=== PATIENT | female | born 1935 | race Caucasian/White ===

== ENCOUNTER 2019-04-14 09:52 | Outpatient (CLI) | payer MEDICARE, OTHER ==
--- NOTE | 2019-04-14 11:04 | RAD ---
3 VIEWS LUMBAR SPINE: Date: 04/14/19 COMPARISON: 02/15/17. HISTORY: Low back pain. FINDINGS: There is an anterior wedge compression fracture/superior end plate fracture of the L3 vertebral body with approximately 40% loss of vertebral body height anteriorly, not significantly changed when sparkle red to the 02/15/17 exam. On the flexion lateral view, there is anterolisthesis of L4 on L5 measuring 8.0 mm, stable. The anterolisthesis at L4-5 measures 8.0 mm on neutral imaging and 9.0 mm on extensi on imaging. There is multilevel lower lumbar spine facet hypertrophy. IMPRESSION: Stable L3 fracture. Stable anterolisthesis of L4 on L5. POS: [facility]
--- NOTE | 2019-04-14 11:42 | MRI ---
MRI LUMBAR SPINE WITH AND WITHOUT CONTRAST: Date: 04/14/19 INDICATION: Low back pain. 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 Comparison made to MRI lumbar spine dated 02/15/17. FINDINGS: Anterior wedge compression deformity involving the L3 vertebra is again seen and appears stable. Ther e is a superior end plate deformity consistent with Schmorl's node at this vertebra which is unchange d in appearance. Slight posterolisthesis at L3-4 is stable. A Grade I anterolisthesis at L4-5 is unchanged. At L1-2, mild disc bulge without central canal or foraminal stenosis. At L2-3, there is broad based disc bulge. Moderate facet hypertrophy. Mild central canal stenosis, wh ich appears stable. At L3-4, there is slight posterolisthesis. There is a broad based disc bulge. Prominent facet and lig amentous hypertrophy. Moderate central canal stenosis which appears stable. Bilateral foraminal steno sis secondary to diffuse disc bulge and facet hypertrophy. An asymmetric disc projects to the right. At L4-5, anterolisthesis with diffuse disc bulge flattening the thecal sac. Prominent facet hypertrop hy. Mild to moderate central canal stenosis. Bilateral foraminal stenosis due to the listhesis and br oad based bulge with facet hypertrophy. At L5-S1, there is no significant disc bulge. Mild to moderate facet hypertrophy. No significant cent ral canal or foraminal stenosis. Review of surrounding soft tissues show parapelvic cystic lesions and prominent collecting structures at both kidneys. These findings are stable from the MRI of 2017. IMPRESSION: Anterior wedge deformity at L3 with superior end plate deformity at L3 appears stable. Slight postero listhesis at L3-4 and anterolisthesis at L4-5 appear unchanged. Findings at each level as noted above . POS: [facility]
== END 2019-04-14 09:53 | disposition home or self-care (01) ==
LOC: TBSIIMAG 09:52
PROVIDERS: ATTEND Neurological Surgery
DX: Q76.2 Congenital spondylolisthesis (principal); M54.5 Low back pain; Z87.81 Personal history of (healed) traumatic fracture
CPT/HCPCS: 72100; 72158; 82565

== ENCOUNTER 2019-12-31 10:29 | Day surgery (SDC) | payer MEDICARE, OTHER ==
[2019-12-29 14:19] VITALS: BMI 17.3
[2019-12-31] MEDS ORDERED: Fentanyl 100 MCG/2 ML VIAL ONE (13:17)
[2019-12-31] MEDS ORDERED: Bupivacaine PF 0.5% 30 ML VIAL ONE (13:18)
--- NOTE | 2020-01-01 14:36 | OP ---
DATE OF PROCEDURE: 12/31/2019 PREOPERATIVE DIAGNOSIS: Right neuroma, third interspace. POSTOPERATIVE DIAGNOSIS: Right neuroma, third interspace. PROCEDURE PERFORMED: Right foot third interspace excision of neuroma. ESTIMATED BLOOD LOSS: Less than 30 mL. ANESTHESIA: Light sedation with ankle block, totaling 10 mL of 0.5% plain Marcaine. HEMOSTASIS: Well-padded pneumatic ankle tourniquet utilized. PATHOLOGY: Neuroma measuring 2 cm x 4 cm, sent to Pathology for microscopic examination. DESCRIPTION OF PROCEDURE: The patient was taken to the operating room and placed on the operating room table in the supine position. After she was made comfortable, an ankle block was performed on the right. Next, the right lower extremity was scrubbed and draped in usual surgical manner. Attention was directed to the dorsal right third interspace. A linear incision was made over the third interspace. Using sharp and blunt dissection and electrocauterization as necessary, the surgical site was deepened to identify the intermetatarsal ligament. At this time, plantar pressure was applied to the foot and a large neuroma was seen bulging distally to the intermetatarsal ligament. Transection of the intermetatarsal ligament was performed with tenotomy scissors. Next, the nerve was dissected free distally and proximally, proximal to the metatarsal heads. The digital nerves were transected, then the nerve was dissected proximal to the metatarsal heads and then resected. Copious lavage with normal saline was performed. The incision was reapproximated with 3-0 nylon suture. A placement of a Ti drain was done to prevent deep space abscess. Dressings were applied consisting of Xeroform, 4x4 gauze, Laurie, and an Paul bandage. The patient was fitted with a postoperative shoe. Upon deflation of the pneumatic cuff, instant capillary filling to all the digits was noted. The patient tolerated the anesthesia and procedure well. She left the operating room to the recovery room with vital signs stable. During the procedure, an additional field block was performed using 0.5% plain Marcaine less than 10 mL. The patient will be called to check on her status this evening. She has a followup appointment with [facility] on for re-examination and bandage change. Job ID: [id number]
== END 2019-12-31 15:25 | disposition home or self-care (01) ==
LOC: SDC 10:29
PROVIDERS: ATTEND Podiatrist
PROC: 01BG0ZZ Excision of Tibial Nerve, Open Approach (ICD-10-PCS; principal; 2019-12-31)
DX: G57.81 Other specified mononeuropathies of right lower limb (principal); M19.071 Primary osteoarthritis, right ankle and foot; J45.909 Unspecified asthma, uncomplicated; E06.3 Autoimmune thyroiditis; E03.9 Hypothyroidism, unspecified; M81.0 Age-related osteoporosis without current pathological fracture; Z79.899 Other long term (current) drug therapy; Z88.1 Allergy status to other antibiotic agents; Z91.041 Radiographic dye allergy status
CPT/HCPCS: 88304; J0690; J3010; S0020

== ENCOUNTER 2020-04-17 16:55 | Emergency (ER) | payer MEDICARE, OTHER ==
[2020-04-17] MEDS ORDERED: Ondansetron ODT 4 MG TAB ONE (17:20)
[2020-04-17 17:42] LABS: Bilirubin Negative (Negative); Blood, Urine Trace (Negative); Clarity Turbid (Clear); Glucose, Urine (Dipstick) Normal (Negative); Ketone, Urine Negative (Negative); Leukocyte Negative Leu/uL (Negative); Nitrite Negative (Negative); Protein, Urine (Dipstick) 20 mg/dL (Neg-Trace); RBC/HPF 0-3 HPF (0-3); Specific Gravity, Urine 1.019 (1.002-1.036); Squamous Epithelial 0-3 HPF (0-3); Urobilinogen Normal mg/dL (Less than 2)
[2020-04-17 17:46] LABS: Bacteria/HPF 1+ HPF (None Seen)
[2020-04-17 17:54] LABS: #Lymphocytes 0.9 thou/uL (1.20-3.40); #Monocytes 0.4 thou/uL (0.11-0.59); #Neutrophils 5.9 thou/uL (1.40-6.50); %Basophils 0.4 % (0.0-1.0); %Eosinophils 0.3 % (0.0-10.0); %Lymphocytes 12.1 % (21.0-51.0); %Monocytes 5.9 % (0.0-10.0); %Neutrophils 81.3 % (42.0-75.0); Hemoglobin 14.2 g/dL (12.0-16.0); Mean Corpuscular HGB CONC 34.7 g/dL (32.0-36.0); Mean Corpuscular Hemoglobin 33.4 pg (27.0-31.0); Mean Corpuscular Volume 96.3 fL (78.0-98.0); Mean Platelet Volume 11.4 fL (7.4-10.4); Platelet Count 82 thou/uL (130-400); RBC Distribution Width 11.5 % (11.5-14.5); Red Blood Cell (RBC) Count 4.26 mill/uL (4.20-5.40); White Blood Cell (WBC) Count 7.3 thou/uL (4.8-10.8)
[2020-04-17 18:15] LABS: ALT (SGPT) 12 U/L (8-55); AST (SGOT) 19 U/L (5-34); Albumin 3.8 g/dL (3.4-4.8); Alkaline Phosphatase 61 U/L (40-110); Anion Gap 14 mmol/L (10-20); BUN (Urea Nitrogen) 15 mg/dL (9.8-20.1); Bilirubin, Total 0.5 mg/dL (0.2-1.2); Calc. Creatinine Clearance 0 mL/min (70-130); Calcium 9.2 mg/dL (7.8-10.44); Carbon Dioxide 26 mmol/L (23-31); Chloride 103 mmol/L (98-107); Estimated GFR-MDRD 49; Globulin 2.5 g/dL (2.4-3.5); Glucose 136 mg/dL (83-110); Lipase 24 U/L (8-78); Potassium 3.4 mmol/L (3.5-5.1); Protein, Total 6.3 g/dL (6.0-8.3); Sodium 140 mmol/L (136-145)
[2020-04-17] MEDS ORDERED: Ketorolac Tromethamine 30 MG/ML VIAL ONE (18:58)
[2020-04-17] MEDS ORDERED: Ondansetron PF 4 MG/2 ML Vial ONE (18:58)
--- NOTE | 2020-04-17 19:04 | CT ---
CT ABDOMEN AND PELVIS WITHOUT IV CONTRAST: Indications: Left flank pain Comparison: CT of chest, abdomen, and pelvis without contrast, November 2005 FINDINGS: Lung bases are clear. The liver, spleen, and pancreas unremarkable. Stomach unremarkable. Adrenal glands normal. Review of kidneys reveal numerous hyperdense lesions in the right kidney with a calcification in the lower pole of the right kidney. These hyperdense lesions were present in 2005 and the calcification w as also present in 2005. The right kidney appears stable from that study. Review of left kidney shows evidence of mild left hydronephrosis. I cannot exclude multiple small par apelvic cysts although these all may represent dilated upper collecting structures. The left ureter i s mildly dilated. The bladder is contracted. There is a tiny calcific density measuring in the 3 mm r meaghan in the region of the distal left ureter. Tiny left ureteral calculus is suspected but difficult to confirm. The small bowel loops are normal caliber. Colon is unremarkable. Aorta normal caliber. Images through the pelvis show unremarkable uterus and adnexa. Osseous structures show a compression deformity involving the L3 vertebra. There is an anterolisthesi s at L4-5. Bones are osteopenic. IMPRESSION: 1. Evidence of mild to moderate left hydronephrosis and left hydroureter. A tiny calculus is seen in the region of the distal left ureter, probably representing an obstructing calculus. Follow up is rec ommended with IVP or CT urogram if this calculus does not pass spontaneously. 2. Numerous hyperdense lesions in the right kidney, right renal calcification are noted. These lesion s appear stable when compared to the prior examination of 2005. POS: [facility]
== END 2020-04-17 21:10 | disposition home or self-care (01) ==
LOC: ERS 16:55
DX: N13.2 Hydronephrosis with renal and ureteral calculous obstruction (principal); I34.1 Nonrheumatic mitral (valve) prolapse; E06.3 Autoimmune thyroiditis; Z79.899 Other long term (current) drug therapy
CPT/HCPCS: 36415; 74176; 80053; 81003; 81015; 83690; 85025; 87086; 96361; 96374; 96375; J1885; J2405; Q0162

== ENCOUNTER 2020-04-29 13:23 | Outpatient (CLI) | payer MEDICARE, OTHER ==
--- NOTE | 2020-04-29 13:51 | BD ---
EXAM: Bone densitometry using DEXA HISTORY: 54 yo female. Screening for postmenopausal osteoporosis FINDINGS: L1--bone mineral density 0.633 g/sq cm; T score -3.2 ; Z score -0.8 L2--bone mineral density 0.698 g/sq cm; T score -2.0 ; Z score -0.3 L3--bone mineral density 0.825 g/sq cm; T score -2.4 ; Z score 0.5 L4--bone mineral density 0.861 g/sq cm; T score -1.8 ; Z score 1.1 Total L1-L4--bone mineral density 0.756 g/sq cm; T score -2.6 ; Z score 0.1 Left femoral neck--bone mineral density0.486; T score -2.3 ; Z score -0.9 Total proximal left femur--bone mineral density 0.622; T score -2.6 ; Z score -0.4 IMPRESSION: Osteoporosis
== END 2020-04-29 13:24 | disposition home or self-care (01) ==
LOC: BICMAMMO 13:23
PROVIDERS: ATTEND Internal Medicine Rheumatology
DX: M81.0 Age-related osteoporosis without current pathological fracture (principal)
CPT/HCPCS: 77080

== ENCOUNTER 2020-12-21 10:52 | Outpatient (CLI) | payer MEDICARE, OTHER | END 2020-12-21 10:53 | disposition home or self-care (01) | LOC: TBSIIMAG 10:52 | PROVIDERS: ATTEND Family Medicine | DX: M50.90 Cervical disc disorder, unspecified, unspecified cervical region (principal); M47.812 Spondylosis without myelopathy or radiculopathy, cervical region; M48.02 Spinal stenosis, cervical region | CPT/HCPCS: 72141 ==

== ENCOUNTER 2021-01-05 10:34 | Outpatient (CLI) | payer MEDICARE, OTHER | END 2021-01-05 10:35 | disposition home or self-care (01) | LOC: ULT 10:34 | PROVIDERS: ATTEND Urology | DX: N28.1 Cyst of kidney, acquired (principal); N20.0 Calculus of kidney | CPT/HCPCS: 76770 ==

== ENCOUNTER 2021-05-10 10:27 | Outpatient (CLI) | payer MEDICARE, OTHER | END 2021-05-10 10:28 | disposition home or self-care (01) | LOC: BICMAMMO 10:27 | PROVIDERS: ATTEND Internal Medicine Rheumatology | DX: M81.0 Age-related osteoporosis without current pathological fracture (principal) | CPT/HCPCS: 77080 ==

== ENCOUNTER 2021-06-23 08:19 | Emergency (ER) | payer MEDICARE, OTHER ==
[2021-06-23] MEDS ORDERED: Ondansetron PF 4 MG/2 ML Vial ONE (09:03)
[2021-06-23] MEDS ORDERED: Aspirin Chewable 81 MG TAB ONE ×2 (09:03→09:11)
[2021-06-23 09:24] LABS: #Eosinphils 0.1 thou/uL (0.0-0.7); #Lymphocytes 1.2 thou/uL (1.20-3.40); #Monocytes 0.5 thou/uL (0.11-0.59); #Neutrophils 2.5 thou/uL (1.40-6.50); %Basophils 0.2 % (0.0-1.0); %Eosinophils 2.8 % (0.0-10.0); %Lymphocytes 27.2 % (21.0-51.0); %Monocytes 11.2 % (0.0-10.0); %Neutrophils 58.5 % (42.0-75.0); Hemoglobin 15.4 g/dL (12.0-16.0); Mean Corpuscular HGB CONC 32.7 g/dL (32.0-36.0); Mean Corpuscular Hemoglobin 31.9 pg (27.0-31.0); Mean Corpuscular Volume 97.6 fL (78.0-98.0); Mean Platelet Volume 10.6 fL (7.4-10.4); Platelet Count 72 thou/uL (130-400); RBC Distribution Width 12.1 % (11.5-14.5); Red Blood Cell (RBC) Count 4.83 mill/uL (4.20-5.40); White Blood Cell (WBC) Count 4.2 thou/uL (4.8-10.8)
[2021-06-23 09:29] LABS: Bilirubin Negative (Negative); Blood, Urine Negative (Negative); Clarity Clear (Clear); Glucose, Urine (Dipstick) Normal (Negative); Ketone, Urine Negative (Negative); Leukocyte Negative Leu/uL (Negative); Nitrite Negative (Negative); Protein, Urine (Dipstick) Negative (Neg-Trace); Specific Gravity, Urine 1.004 (1.002-1.036); Urobilinogen Normal mg/dL (Less than 2); pH, Urine 7.5 (5.0-9.0)
[2021-06-23 10:20] LABS: SARS-CoV-2 NAA Rapid Test Not Detected (NotDetected)
[2021-06-23 12:05] LABS: ALT (SGPT) 11 U/L (8-55); AST (SGOT) 19 U/L (5-34); Albumin 3.6 g/dL (3.4-4.8); Alkaline Phosphatase 67 U/L (40-110); Anion Gap 15 mmol/L (10-20); BUN (Urea Nitrogen) 12 mg/dL (9.8-20.1); Bilirubin, Total 0.8 mg/dL (0.2-1.2); Calc. Creatinine Clearance 0 mL/min (70-130); Calcium 9.6 mg/dL (7.8-10.44); Carbon Dioxide 22 mmol/L (23-31); Chloride 105 mmol/L (98-107); Globulin 3.1 g/dL (2.4-3.5); Glucose 92 mg/dL (83-110); Potassium 3.9 mmol/L (3.5-5.1); Protein, Total 6.7 g/dL (5.8-8.1); Sodium 138 mmol/L (136-145)
== END 2021-06-23 13:30 | disposition home or self-care (01) ==
LOC: ERS 08:19
DX: R00.2 Palpitations (principal); Z20.822 Contact with and (suspected) exposure to COVID-19; I34.1 Nonrheumatic mitral (valve) prolapse; Z79.899 Other long term (current) drug therapy
CPT/HCPCS: 0240U; 71045; 81003; 83735; 84439; 84484; 93005; 96374; 99285; 80053; 84443; 85025; J2405

== ENCOUNTER 2021-07-18 09:53 | Outpatient (CLI) | payer MEDICARE, OTHER | END 2021-07-18 09:54 | disposition home or self-care (01) | LOC: BICMAMMO 09:53 | PROVIDERS: ATTEND Family Medicine | DX: N63.20 Unspecified lump in the left breast, unspecified quadrant (principal) | CPT/HCPCS: 76642; 77066; G0279 ==

== ENCOUNTER 2021-10-02 12:49 | Outpatient (CLI) | payer MEDICARE, OTHER | END 2021-10-02 12:50 | disposition home or self-care (01) | LOC: RAD 12:49 | PROVIDERS: ATTEND Specialist | DX: M51.16 Intervertebral disc disorders with radiculopathy, lumbar region (principal); M47.26 Other spondylosis with radiculopathy, lumbar region | CPT/HCPCS: 72110 ==

== ENCOUNTER 2022-01-30 14:01 | Outpatient (CLI) | payer MEDICARE, OTHER | END 2022-01-30 14:02 | disposition home or self-care (01) | LOC: BICRAD 14:01 | PROVIDERS: ATTEND Urology | DX: N20.0 Calculus of kidney (principal); N28.89 Other specified disorders of kidney and ureter | CPT/HCPCS: 74018 ==

== ENCOUNTER 2022-04-30 19:02 | Observation (INO) | payer MEDICARE, OTHER ==
[2022-04-30 20:08] VITALS: BMI 19.8
[2022-04-30] MEDS ORDERED: LACTINEX 1 TAB PO PRN (20:26)
[2022-04-30] MEDS ORDERED: Lidocaine 5% Patch TD PRN (20:26)
[2022-04-30] MEDS ORDERED: Ascorbic Acid 500 mg Chewable Tablet PO PRN (20:26)
[2022-04-30] MEDS ORDERED: Loratadine 10 MG TAB PO PRN (20:26)
[2022-04-30] MEDS ORDERED: guaiFENesin ER 600 MG TAB PO PRN (20:26)
[2022-04-30] MEDS ORDERED: Bisacodyl 5 MG TAB PO PRN (20:54)
[2022-04-30] MEDS ORDERED: Senokot S 8.6-50 MG TAB PO PRN (20:54)
[2022-04-30] MEDS ORDERED: Famotidine 20 MG TAB PO SCH (21:00)
[2022-04-30] MEDS ORDERED: [UNRECOGNIZED DRUG - OTHER] PO SCH (21:00)
[2022-04-30] MEDS ORDERED: CHOLECALCIFEROL PO SCH (21:00)
[2022-04-30] MEDS ORDERED: Fish Oil 1,000 MG CAP PO SCH (21:00)
[2022-04-30] MEDS ORDERED: [UNRECOGNIZED DRUG - OTHER] PO SCH (21:00)
[2022-04-30] MEDS: Flecainide 50 MG TAB PO SCH (21:15)
[2022-04-30] MEDS: Acetaminophen 325 MG TAB PO PRN (21:18)
[2022-04-30] MEDS: cycloSPORINE 0.05% Ophthalmic Droperette EA EYE SCH (21:20)
[2022-04-30] MEDS: Transdermal Patch Removal TOP SCH (21:26)
[2022-05-01 05:32] LABS: Anion Gap 10 mmol/L (10-20); BUN (Urea Nitrogen) 17 mg/dL (9.8-20.1); Calc. Creatinine Clearance 42 mL/min (70-130); Calcium 8.8 mg/dL (7.8-10.44); Carbon Dioxide 26 mmol/L (23-31); Chloride 107 mmol/L (98-107); Estimated GFR 78; Glucose 84 mg/dL (83-110); Potassium 3.7 mmol/L (3.5-5.1); Sodium 139 mmol/L (136-145)
[2022-05-01] MEDS ORDERED: Levothyroxine Sodium 100 MCG TAB PO SCH (06:00)
[2022-05-01 06:05] LABS: #Lymphocytes 1.2 thou/uL (1.20-3.40); #Monocytes 0.4 thou/uL (0.11-0.59); #Neutrophils 2.5 thou/uL (1.40-6.50); %Basophils 0.4 % (0.0-1.0); %Eosinophils 1.1 % (0.0-10.0); %Lymphocytes 27.9 % (21.0-51.0); %Monocytes 10.3 % (0.0-10.0); %Neutrophils 60.4 % (42.0-75.0); Hemoglobin 13.8 g/dL (12.0-16.0); Mean Corpuscular HGB CONC 33.7 g/dL (32.0-36.0); Mean Corpuscular Hemoglobin 33.6 pg (27.0-31.0); Mean Corpuscular Volume 99.6 fL (78.0-98.0); Mean Platelet Volume 11.6 fL (7.4-10.4); Platelet Count 60 thou/uL (130-400); Platelet Morphology Comment Appears Decreased; RBC Distribution Width 11.4 % (11.5-14.5); RBC Morphology Normal; White Blood Cell (WBC) Count 4.1 thou/uL (4.8-10.8)
[2022-05-01] MEDS ORDERED: Liothyronine Sodium 5 MCG TAB PO SCH (07:30)
[2022-05-01] MEDS ORDERED: Non-Formulary Item 1 EACH (Biotin [Biotin] 5,000 MCG Tab.Rapdis) PO SCH (09:00)
[2022-05-01] MEDS ORDERED: Fish Oil 1,000 MG CAP PO SCH (09:00)
[2022-05-01] MEDS ORDERED: ZINC GLUCONATE ZINC PICOLINATE 30 MG PO SCH (09:00)
[2022-05-01] MEDS ORDERED: Folic Acid 1 MG TAB PO SCH (09:00)
[2022-05-01] MEDS ORDERED: Enoxaparin Sodium 30 MG/0.3 ML SYRINGE SC SCH (09:00)
[2022-05-01] MEDS: Flecainide 50 MG TAB PO SCH (09:22)
[2022-05-01] MEDS: cycloSPORINE 0.05% Ophthalmic Droperette EA EYE SCH (09:23)
[2022-05-01] MEDS: Transdermal Patch Removal TOP SCH (09:23)
[2022-05-01 12:55] VITALS: TEMP 97.7
[2022-05-01] MEDS: Acetaminophen 325 MG TAB PO PRN (13:26)
[2022-05-01 17:32] VITALS: BP 150/67
== END 2022-05-01 18:40 | disposition home or self-care (01) ==
LOC: 2SW 19:42
PROVIDERS: ADMIT Hospitalist; ATTEND Hospitalist
DX: R55 Syncope and collapse (principal); E03.9 Hypothyroidism, unspecified; I49.9 Cardiac arrhythmia, unspecified; G47.33 Obstructive sleep apnea (adult) (pediatric); D69.6 Thrombocytopenia, unspecified; E06.3 Autoimmune thyroiditis; M81.0 Age-related osteoporosis without current pathological fracture; Z66 Do not resuscitate; Z79.890 Hormone replacement therapy; Z79.899 Other long term (current) drug therapy; Z88.1 Allergy status to other antibiotic agents; Z91.041 Radiographic dye allergy status; Z20.822 Contact with and (suspected) exposure to COVID-19; R94.31 Abnormal electrocardiogram [ECG] [EKG]; R01.1 Cardiac murmur, unspecified
CPT/HCPCS: 70450; 71045; 72125; 80048; 80053; 84484; 85025 ×2; 87086; 93005; 93306; 94760; 97116; G0378 ×2; U0003; U0005; 36415; 81003; 81015

== ENCOUNTER 2022-07-05 10:03 | Outpatient (CLI) | payer MEDICARE, OTHER | END 2022-07-05 10:04 | disposition home or self-care (01) | LOC: SCSRAD 10:03 | PROVIDERS: ATTEND Family Medicine | DX: M54.50 Low back pain, unspecified (principal); M51.86 Other intervertebral disc disorders, lumbar region | CPT/HCPCS: 72100 ==

== ENCOUNTER 2022-07-16 08:20 | Outpatient (CLI) | payer MEDICARE, OTHER | END 2022-07-16 08:21 | disposition home or self-care (01) | LOC: SCSMRI 08:20 | PROVIDERS: ATTEND Nurse Practitioner Family | DX: M48.56XA Collapsed vertebra, not elsewhere classified, lumbar region, initial encounter for fracture (principal); M43.16 Spondylolisthesis, lumbar region; M51.36 Other intervertebral disc degeneration, lumbar region; M43.8X6 Other specified deforming dorsopathies, lumbar region | CPT/HCPCS: 72148 ==

== ENCOUNTER 2023-01-17 12:05 | Outpatient (CLI) | payer MEDICARE, OTHER | END 2023-01-17 12:06 | disposition home or self-care (01) | LOC: BICULT 12:05 | PROVIDERS: ATTEND Urology | DX: N13.2 Hydronephrosis with renal and ureteral calculous obstruction (principal) | CPT/HCPCS: 36415; 74018; 76770; 80048 ==

== ENCOUNTER 2023-04-10 13:26 | Outpatient (CLI) | payer MEDICARE, OTHER | END 2023-04-10 13:27 | disposition home or self-care (01) | LOC: SCSMRI 13:26 | PROVIDERS: ATTEND Specialist | DX: M51.16 Intervertebral disc disorders with radiculopathy, lumbar region (principal); M47.26 Other spondylosis with radiculopathy, lumbar region; M43.16 Spondylolisthesis, lumbar region; M48.061 Spinal stenosis, lumbar region without neurogenic claudication; M43.8X6 Other specified deforming dorsopathies, lumbar region; M47.22 Other spondylosis with radiculopathy, cervical region; M50.11 Cervical disc disorder with radiculopathy, high cervical region; M50.122 Cervical disc disorder at C5-C6 level with radiculopathy; M50.123 Cervical disc disorder at C6-C7 level with radiculopathy; G95.89 Other specified diseases of spinal cord | CPT/HCPCS: 72141; 72148 ==

== ENCOUNTER 2023-05-07 18:02 | Observation (INO) | payer MEDICARE, OTHER ==
[~2023-05-07 18:02] MED LIST: Iopamidol-370 76% 500 ML MDV (1 ML CHARGE) ONE
[2023-05-07 19:32] LABS: #Monocytes 0.5 thou/uL (0.11-0.59); #Neutrophils 3.4 thou/uL (1.40-6.50); %Basophils 0.4 % (0.0-1.0); %Eosinophils 0.7 % (0.0-10.0); %Lymphocytes 29.9 % (21.0-51.0); %Monocytes 8.8 % (0.0-10.0); Hematocrit 45.8 % (36.0-47.0); Hemoglobin 15.6 g/dL (12.0-16.0); Mean Corpuscular HGB CONC 34.1 g/dL (32.0-36.0); Mean Corpuscular Volume 99.8 fl (78.0-98.0); RBC Distribution Width 13.3 % (11.5-14.5); Red Blood Cell (RBC) Count 4.59 mill/uL (4.20-5.40); White Blood Cell (WBC) Count 5.7 10x3/uL (4.8-10.8)
[2023-05-07 19:34] LABS: Platelet Count 87 10x3/uL (130-400)
[2023-05-07 19:41] LABS: PTT 35.2 sec (22.9-36.1); Prothrombin Time 12.7 sec (12.0-14.7)
[2023-05-07 19:43] LABS: INR-International Normal Ratio 0.9
[2023-05-07 19:47] LABS: Bacteria/HPF None Seen HPF (None Seen); Bilirubin Negative (Negative); Blood, Urine Negative (Negative); Clarity Turbid (Clear); Glucose, Urine (Dipstick) Normal (Negative); Ketone, Urine Negative (Negative); Leukocyte Negative Leu/uL (Negative); Nitrite Negative (Negative); Protein, Urine (Dipstick) Negative (Neg-Trace); RBC/HPF 0-3 HPF (0-3); Squamous Epithelial None Seen HPF (0-3); Urobilinogen Normal mg/dL (Less than 2); WBC/HPF 0-3 HPF (0-3); pH, Urine 7.5 (5.0-9.0)
[2023-05-07 19:50] LABS: Urine Culture Reflex No No
[2023-05-07 19:53] LABS: ALT (SGPT) 13 U/L (8-55); AST (SGOT) 19 U/L (5-34); Albumin 4.3 g/dL (3.4-4.8); Alkaline Phosphatase 76 U/L (40-110); Anion Gap 16 mmol/L (10-20); BUN (Urea Nitrogen) 21 mg/dL (9.8-20.1); Bilirubin, Total 0.5 mg/dL (0.2-1.2); Calc. Creatinine Clearance 0 mL/min (70-130); Calcium 10.5 mg/dL (7.8-10.44); Carbon Dioxide 27 mmol/L (23-31); Chloride 102 mmol/L (98-107); Estimated GFR 61; Globulin 2.9 g/dL (2.4-3.5); Glucose 98 mg/dL (83-110); Protein, Total 7.2 g/dL (5.8-8.1); Sodium 141 mmol/L (136-145)
[2023-05-07 19:57] LABS: Troponin I Less than 0.010 ng/mL (< 0.028)
[2023-05-07] MEDS ORDERED: Ondansetron PF 4 MG/2 ML Vial IVP PRN (21:15)
[2023-05-07] MEDS ORDERED: Ondansetron ODT 4 MG TAB SL PRN (21:15)
[2023-05-07] MEDS ORDERED: Sodium Chloride 0.9% 1,000 ML IV SCH (21:15)
[2023-05-07] MEDS ORDERED: Acetaminophen 325 MG TAB PO PRN (21:15)
[2023-05-07 23:07] LABS: Troponin I Less than 0.010 ng/mL (< 0.028)
[2023-05-07] MEDS ORDERED: Calcium Carbonate 500 MG ChewTAB PO PRN (23:10)
[2023-05-07] MEDS ORDERED: Senokot S 8.6-50 MG TAB PO PRN (23:10)
[2023-05-07 23:21] VITALS: BMI 18.1
[2023-05-08 01:44] LABS: Troponin I Less than 0.010 ng/mL (< 0.028)
[2023-05-08] MEDS ORDERED: Ondansetron PF 4 MG/2 ML Vial IVP PRN (04:33)
[2023-05-08 04:46] LABS: #Eosinphils 0.1 thou/uL (0.0-0.7); #Monocytes 0.5 thou/uL (0.11-0.59); #Neutrophils 2.6 thou/uL (1.40-6.50); %Basophils 0.4 % (0.0-1.0); %Eosinophils 1.3 % (0.0-10.0); %Lymphocytes 32.1 % (21.0-51.0); %Monocytes 10.8 % (0.0-10.0); %Neutrophils 55.2 % (42.0-75.0); Hematocrit 42.7 % (36.0-47.0); Hemoglobin 14.8 g/dL (12.0-16.0); Mean Corpuscular HGB CONC 34.7 g/dL (32.0-36.0); Mean Corpuscular Hemoglobin 33.3 pg (27.0-31.0); Mean Platelet Volume 12.9 fL (7.4-10.4); RBC Distribution Width 13.1 % (11.5-14.5); Red Blood Cell (RBC) Count 4.45 mill/uL (4.20-5.40); White Blood Cell (WBC) Count 4.7 10x3/uL (4.8-10.8)
[2023-05-08 04:47] LABS: Platelet Count 74 10x3/uL (130-400)
[2023-05-08 05:26] LABS: Anion Gap 14 mmol/L (10-20); BUN (Urea Nitrogen) 15 mg/dL (9.8-20.1); Calc. Creatinine Clearance 41 mL/min (70-130); Calcium 9.4 mg/dL (7.8-10.44); Carbon Dioxide 26 mmol/L (23-31); Chloride 105 mmol/L (98-107); Estimated GFR 77; Glucose 88 mg/dL (83-110); Potassium 3.8 mmol/L (3.5-5.1); Sodium 141 mmol/L (136-145)
[2023-05-08] MEDS ORDERED: Levothyroxine Sodium 75 MCG TAB PO SCH ×2 (06:00)
[2023-05-08] MEDS ORDERED: Famotidine 20 MG TAB PO SCH (09:00)
[2023-05-08] MEDS ORDERED: Levothyroxine Sodium 125 MCG TAB PO SCH (09:00)
[2023-05-08] MEDS ORDERED: Flecainide 50 MG TAB PO SCH ×2 (09:00)
[2023-05-08] MEDS ORDERED: Metoclopramide 10 MG/10 ML UDCUP PO PRN (11:42)
[2023-05-08 12:20] VITALS: TEMP 96.8
[2023-05-08 12:58] VITALS: BP 132/63
== END 2023-05-08 15:10 | disposition home or self-care (01) ==
LOC: ERS 18:02 → 2SE 21:09
PROVIDERS: ADMIT Student in an Organized Health Care Education/Training Program; ATTEND Family Medicine
DX: E87.8 Other disorders of electrolyte and fluid balance, not elsewhere classified (principal); R42 Dizziness and giddiness; M48.02 Spinal stenosis, cervical region; D69.6 Thrombocytopenia, unspecified; I49.9 Cardiac arrhythmia, unspecified; E03.9 Hypothyroidism, unspecified; R94.31 Abnormal electrocardiogram [ECG] [EKG]; Z88.1 Allergy status to other antibiotic agents; Z79.890 Hormone replacement therapy; Z79.899 Other long term (current) drug therapy; Z90.89 Acquired absence of other organs; Z90.49 Acquired absence of other specified parts of digestive tract
CPT/HCPCS: 70450; 70496; 70498; 70551; 71045; 80048; 80053; 81001; 82962; 84443; 84484 ×3; 85025 ×2; 85610; 85730; 93005; 97110; 97116; 99285; G0378 ×3; 36415; 36416; Q9967

== ENCOUNTER 2023-06-14 12:53 | Outpatient (CLI) | payer MEDICARE, OTHER | END 2023-06-14 12:54 | disposition home or self-care (01) | LOC: BICMAMMO 12:53 | PROVIDERS: ATTEND Internal Medicine Rheumatology | DX: M81.0 Age-related osteoporosis without current pathological fracture (principal); M85.89 Other specified disorders of bone density and structure, multiple sites | CPT/HCPCS: 77080 ==

== ENCOUNTER 2024-01-24 10:06 | Outpatient (CLI) | payer MEDICARE, OTHER | END 2024-01-24 10:07 | disposition home or self-care (01) | LOC: BICULT 10:06 | PROVIDERS: ATTEND Urology | DX: N20.0 Calculus of kidney (principal); N28.1 Cyst of kidney, acquired | CPT/HCPCS: 74018; 76770 ==

== ENCOUNTER 2024-01-30 14:25 | Outpatient (CLI) | payer MEDICARE, OTHER | END 2024-01-30 14:26 | disposition home or self-care (01) | LOC: BICMRI 14:25 | PROVIDERS: ATTEND Nurse Practitioner Family | DX: M51.16 Intervertebral disc disorders with radiculopathy, lumbar region (principal); M43.16 Spondylolisthesis, lumbar region; M48.061 Spinal stenosis, lumbar region without neurogenic claudication; S32.010D Wedge compression fracture of first lumbar vertebra, subsequent encounter for fracture with routine healing; S32.030D Wedge compression fracture of third lumbar vertebra, subsequent encounter for fracture with routine healing | CPT/HCPCS: 72120; 72148 ==

== ENCOUNTER 2024-08-21 14:35 | Outpatient (CLI) | payer MEDICARE, OTHER | END 2024-08-21 14:36 | disposition home or self-care (01) | LOC: BICMAMMO 14:35 | PROVIDERS: ATTEND Internal Medicine Rheumatology | DX: M81.0 Age-related osteoporosis without current pathological fracture (principal); M85.88 Other specified disorders of bone density and structure, other site | CPT/HCPCS: 77080 ==

== ENCOUNTER 2024-09-02 11:06 | Outpatient (CLI) | payer MEDICARE, OTHER | END 2024-09-02 11:07 | disposition home or self-care (01) | LOC: ULT 11:06 | PROVIDERS: ATTEND Nurse Practitioner Family | DX: I80.9 Phlebitis and thrombophlebitis of unspecified site (principal); N20.0 Calculus of kidney; N95.2 Postmenopausal atrophic vaginitis; R35.0 Frequency of micturition; R31.29 Other microscopic hematuria ==

== ENCOUNTER 2024-09-14 17:35 | Inpatient (IN) | payer MEDICARE, OTHER ==
[2024-09-14 19:21] LABS: #Basophils Less than 0.03 10x3/uL (0.0-0.2); %Eosinophils 1.4 % (0.0-10.0); %Lymphocytes 29.8 % (21.0-51.0); %Monocytes 11.1 % (0.0-10.0); %Neutrophils 57.4 % (42.0-75.0); Hematocrit 41.2 % (36.0-47.0); Mean Corpuscular Hemoglobin 32.9 pg (27.0-31.0); Mean Corpuscular Volume 96.9 fL (78.0-98.0); Mean Platelet Volume 11.7 fL (7.4-10.4); Platelet Count 73 10x3/uL (130-400); RBC Distribution Width 13.2 % (11.5-14.5); Red Blood Cell (RBC) Count 4.25 mill/uL (4.20-5.40)
[2024-09-14 19:43] LABS: ALT (SGPT) 9 U/L (Less than 34); AST (SGOT) 19 U/L (11-34); Albumin 3.2 g/dL (3.1-4.5); Alkaline Phosphatase 63 U/L (40-110); Anion Gap 14 mmol/L (10-20); BUN (Urea Nitrogen) 22 mg/dL (9.8-20.1); Bilirubin, Total 0.6 mg/dL (0.3-1.2); Calc. Creatinine Clearance 0 mL/min (70-130); Calcium 9.5 mg/dL (7.8-10.44); Carbon Dioxide 28 mmol/L (23-31); Chloride 104 mmol/L (98-107); Estimated GFR 72; Globulin 3.1 g/dL (2.4-3.5); Glucose 102 mg/dL (83-110); Protein, Total 6.3 g/dL (5.8-8.1); Sodium 142 mmol/L (136-145)
[2024-09-14 19:47] LABS: Troponin I Less than 0.010 ng/mL (< 0.028)
[2024-09-14] MEDS ORDERED: Nitroglycerin 0.4 MG TAB (25 Tab Bottle) SL PRN (22:12)
[2024-09-14] MEDS ORDERED: Ondansetron PF 4 MG/2 ML Vial IVP PRN ×2 (22:12→22:15)
[2024-09-14] MEDS ORDERED: Ondansetron ODT 4 MG TAB PO PRN (22:12)
[2024-09-14] MEDS ORDERED: Ondansetron ODT 4 MG TAB SL PRN (22:15)
[2024-09-14] MEDS ORDERED: Acetaminophen 325 MG TAB PO PRN (22:15)
[2024-09-14 23:58] LABS: Magnesium 2.2 mg/dL (1.6-2.6)
[2024-09-15] MEDS: Aspirin Chewable 81 MG TAB PO SCH ×2 (01:41→10:22)
[2024-09-15] MEDS: Acetaminophen 325 MG TAB PO PRN (01:42)
[2024-09-15 02:05] VITALS: BMI 17.8
[2024-09-15 04:02] LABS: Influenza A by NAA Not Detected (NotDetected); Influenza B by NAA Not Detected (NotDetected); SARS-CoV-2 NAA Rapid Test DETECTED (NotDetected)
[2024-09-15 06:03] LABS: Anion Gap 13 mmol/L (10-20); BUN (Urea Nitrogen) 19 mg/dL (9.8-20.1); Calc. Creatinine Clearance 45 mL/min (70-130); Calcium 8.6 mg/dL (7.8-10.44); Carbon Dioxide 28 mmol/L (23-31); Chloride 106 mmol/L (98-107); Estimated GFR 85; Glucose 88 mg/dL (83-110); Potassium 3.6 mmol/L (3.5-5.1); Sodium 143 mmol/L (136-145)
[2024-09-15 06:09] LABS: Troponin I Less than 0.010 ng/mL (< 0.028)
[2024-09-15 06:10] LABS: #Basophils Less than 0.03 10x3/uL (0.0-0.2); %Basophils 0.3 % (0.0-1.0); %Eosinophils 2.4 % (0.0-10.0); %Lymphocytes 37.7 % (21.0-51.0); %Monocytes 11.9 % (0.0-10.0); %Neutrophils 47.4 % (42.0-75.0); Hematocrit 39.2 % (36.0-47.0); Hemoglobin 13.4 g/dL (12.0-16.0); Mean Corpuscular HGB CONC 34.2 g/dL (32.0-36.0); Mean Corpuscular Hemoglobin 32.6 pg (27.0-31.0); Mean Corpuscular Volume 95.4 fL (78.0-98.0); Mean Platelet Volume 11.8 fL (7.4-10.4); Platelet Count 67 10x3/uL (130-400); RBC Distribution Width 13.1 % (11.5-14.5); Red Blood Cell (RBC) Count 4.11 mill/uL (4.20-5.40)
[2024-09-15] MEDS ORDERED: Albuterol 200 PUFF (6.7GM INHALER) INH PRN (08:32)
[2024-09-15] MEDS ORDERED: Non-Formulary Item 1 EACH (Biotin [Biotin] 5,000 MCG Tab.Rapdis) PO SCH (09:00)
[2024-09-15 09:59] VITALS: BMI 17.8
[2024-09-15] MEDS: Fish Oil 1,000 MG CAP PO SCH (10:20)
[2024-09-15] MEDS: Cholecalciferol (Vitamin D3) 400 UNITS TAB PO SCH (10:20)
[2024-09-15] MEDS: Famotidine 20 MG TAB PO SCH (10:20)
[2024-09-15] MEDS: Ascorbic Acid 500 mg Chewable Tablet PO SCH (10:23)
[2024-09-15] MEDS: Zinc Sulfate 220 MG CAP PO SCH (10:23)
[2024-09-15] MEDS: Flecainide 50 MG TAB PO SCH (10:23)
[2024-09-15] MEDS: Dexamethasone 10 MG/ML VIAL SLOW IVP SCH (10:23)
[2024-09-15] MEDS: Benzonatate 100 MG CAP PO SCH (10:59)
[2024-09-15] MEDS: hydrALAZINE 25 MG TAB PO SCH (15:02)
[2024-09-15] MEDS: cefTRIAXone\\ROCEPHIN 1 GM in Sodium Chloride 0.9% 100 ML IVPB SCH (18:01)
[2024-09-15] MEDS: [UNRECOGNIZED DRUG - OTHER] PO SCH (20:55)
[2024-09-16 05:06] LABS: #Basophils Less than 0.03 10x3/uL (0.0-0.2); %Basophils 0.5 % (0.0-1.0); %Eosinophils 4.8 % (0.0-10.0); %Lymphocytes 28.1 % (21.0-51.0); %Monocytes 10.7 % (0.0-10.0); %Neutrophils 55.4 % (42.0-75.0); Hematocrit 38.9 % (36.0-47.0); Hemoglobin 13.4 g/dL (12.0-16.0); Mean Corpuscular HGB CONC 34.4 g/dL (32.0-36.0); Mean Corpuscular Hemoglobin 33.2 pg (27.0-31.0); Mean Corpuscular Volume 96.3 fL (78.0-98.0); Mean Platelet Volume 11.4 fL (7.4-10.4); Platelet Count 81 10x3/uL (130-400); RBC Distribution Width 13.1 % (11.5-14.5); Red Blood Cell (RBC) Count 4.04 mill/uL (4.20-5.40)
[2024-09-16 05:42] LABS: Anion Gap 12 mmol/L (10-20); BUN (Urea Nitrogen) 21 mg/dL (9.8-20.1); Calc. Creatinine Clearance 45 mL/min (70-130); Calcium 8.5 mg/dL (7.8-10.44); Carbon Dioxide 25 mmol/L (23-31); Chloride 107 mmol/L (98-107); Estimated GFR 85; Glucose 85 mg/dL (83-110); Potassium 3.7 mmol/L (3.5-5.1); Sodium 140 mmol/L (136-145)
[2024-09-16] MEDS: Levothyroxine Sodium 75 MCG TAB PO SCH (05:43)
[2024-09-17] MEDS: Levothyroxine Sodium 88 MCG TAB PO SCH (05:29)
[2024-09-17 10:22] VITALS: BP 132/63; TEMP 98.2
== END 2024-09-17 11:13 | disposition home or self-care (01) | DRG 178 ==
LOC: ERS 17:35 → OBS 22:03
PROVIDERS: ADMIT Internal Medicine; ATTEND Hospitalist
PROC: 8E0ZXY6 Isolation (ICD-10-PCS; principal; 2024-09-14)
DX: U07.1 COVID-19 (principal); I50.32 Chronic diastolic (congestive) heart failure; Z68.1 Body mass index [BMI] 19.9 or less, adult; Z66 Do not resuscitate; I11.0 Hypertensive heart disease with heart failure; R00.1 Bradycardia, unspecified; E03.9 Hypothyroidism, unspecified; Z91.018 Allergy to other foods; Z90.89 Acquired absence of other organs; Z98.890 Other specified postprocedural states; Z90.49 Acquired absence of other specified parts of digestive tract; D69.6 Thrombocytopenia, unspecified; R63.6 Underweight
CPT/HCPCS: 36415; 71045; 80048; 80053; 82728; 83690; 83735; 84145; 84443; 84484; 85025; 85379; 86141; 87070; 87205; 93005; 93306; J0696; J1100